=== PATIENT | female | born 1980 | race Caucasian/White ===

== ENCOUNTER 2016-12-30 22:52 | Emergency (ER) | payer OTHER ==
--- NOTE | ~2016-12-30 | CR21 ---
[facility] A Service of [facility] & [facility] RADIOLOGY TEXT RESULTS PATIENT: SABINO BELLO LOCATION: [facility] : 82 UNIT #: [id number] AGE: [address]: Bridget Barney APRN SEX: F ORDER DR: [id number] [facility] [address] [place], [place] [address] [id number] MR#: [id number] Acc #: [id number] NAME: SABINO BELLO : 1980 SEX: F STUDY DATE/TIME: 12/30/2016 22:52 UNIT: [facility] ROOM: STUDY DESCRIPTION: CR Ankle Min 3 Views Rt Attending Physician: Bridget Barney A.P.R.N. Ordering Physician: Bridget Barney A.P.R.N. Primary Care Physician: Teodoro Medina M.D. MEDICAL IMAGING REPORT This report is preliminary unless electronic signature is present EXAM Right ankle series, 12/30/2016 HISTORY 36-year-old female in the ED complaining of 1-day history of right ankle pain and swelling. No reported acute injury. TECHNIQUE Three-view right ankle series. FINDINGS The examination is negative. No fracture, dislocation, arthropathy or other osseous abnormality is demonstrated. IMPRESSION Negative right ankle series. Dictated by... Robert Morgan M.D. THIS IS AN ELECTRONICALLY VERIFIED REPORT Robert Morgan M.D. at 12/31/2016 9:42 PM Tierra TD: 12/31/2016 11:45 JOB #: [id number] MEDICAL IMAGING REPORT Page 1 of 1 COPY
[~2016-12-30 22:52] MED LIST: ALBUTEROL17 GM; ALBUTEROL17 GM INH; ALPRAZOLAM PO; AMOXICILLIN PO; ATARAX PO; AUGMENTIN PO; AZITHROMYCIN250 MG PO; DOXYCYCLINE HY100 M1 PO; FLEXERIL10 MG PO; FLONASE 0.05% N16 GM; HYCODAN60 ML 5MG/ PO; IBUPROFEN PO; MEDROL DOSEPAK4 MG PO; MEDROL PO; MOBIC PO; NAPROSYN500 MG PO; NAPROXEN PO; NO MEDICATIONS; PHENERGAN DM1 ML PO; PHENERGAN PO; PHENERGAN PR; PREDNISONE PO; PREDNISONE10 MG; PREDNISONE10 MG PO; TESSALON200 MG PO; TYLENOL #3 PO; VICODIN 5/500 T1 TAB PO; ZITHROMAX PO; ZITHROMAX1 G/PKT PO; ZYRTEC-D T1 TAB.SR1 PO
== END 2016-12-30 23:45 | disposition home or self-care (01) ==
LOC: CFTX 22:52
DX: S93.401A Sprain of unspecified ligament of right ankle, initial encounter (principal); F31.9 Bipolar disorder, unspecified; F17.210 Nicotine dependence, cigarettes, uncomplicated; X58.XXXA Exposure to other specified factors, initial encounter; Y92.9 Unspecified place or not applicable
CPT/HCPCS: 29540; 73610; 96372; 99283; J1885